=== PATIENT | male | born 1965 | race Caucasian/White ===

== ENCOUNTER 2016-08-08 15:19 | Emergency (ER) | payer OTHER | END 2016-08-08 19:06 | disposition home or self-care (01) | LOC: ER 15:19 | DX: F41.8 Other specified anxiety disorders (principal); F17.200 Nicotine dependence, unspecified, uncomplicated; Z88.8 Allergy status to other drugs, medicaments and biological substances; Z79.899 Other long term (current) drug therapy | CPT/HCPCS: 36415; 96374; J2060 ==